=== PATIENT | female | born 1930 | race Caucasian/White ===

== ENCOUNTER 2018-07-17 10:37 | Emergency (ER) | payer OTHER, MEDICAID ==
[~2018-07-17] VITALS: Ht 162.6 cm; Wt 55.0 kg
[2018-07-17] MEDS ORDERED: ACETAMINOPHEN 650MG SUPP PR STA (11:03)
[2018-07-17] MEDS ORDERED: SODIUM CHLORIDE 0.9% 1000ML BAG (SEPSIS BOLUS) IV ONE (11:15)
[2018-07-17 11:25] LABS: BASOPHILS % 0.2 % (0.0-2.0); HEMATOCRIT. 40.9 % (36.0-48.0); HEMOGLOBIN. 13.5 g/dL (12.0-16.0); MEAN CORPUSCULAR HEMOGLOBIN 29.7 pg (28.0-32.0); MEAN CORPUSCULAR VOLUME 89.8 fL (81.0-99.0); MEAN PLATELET VOLUME 10.7 fl (7.4-10.4); NEUTROPHILS % 88.8 % (40.0-76.0); PLATELET 102 x1000/uL (130-400); RED BLOOD CELL COUNT 4.55 mill/uL (4.2-5.4); RED CELL DISTRIBUTION WIDTH 15.6 % (11.6-14.6)
[2018-07-17 11:31] LABS: PROTHROMBIN TIME 19.5 sec (9.1-11.1)
[2018-07-17 11:34] LABS: CHLORIDE 105 mEq/L (98-107)
[2018-07-17 12:05] LABS: CLARITY URINE CLOUDY (CLEAR); COLOR URINE YELLOW (YELLOW); KETONES URINE NEGATIVE (NEGATIVE); LEUKOCYTE ESTERASE URINE 3+ (NEGATIVE); NITRITE URINE POSITIVE (NEGATIVE); OCCULT BLOOD URINE 1+ (NEGATIVE); PH URINE 6.5 (4.5-8.0); PROTEIN URINE TRACE (NEGATIVE); UROBILINOGEN URINE 0.2 E.U./dL (0.2-1.0)
[2018-07-17] MEDS ORDERED: CEFTRIAXONE 1 G PREMIX 50 ML IV ONE (13:00)
[2018-07-17 16:20] VITALS: BP 133/56
== END 2018-07-17 16:41 | disposition short-term general hospital (02) ==
LOC: ER 10:37 → CANBEDREQ 17:33
DX: N39.0 Urinary tract infection, site not specified (principal); R50.9 Fever, unspecified; M41.84 Other forms of scoliosis, thoracic region; I50.9 Heart failure, unspecified; I48.91 Unspecified atrial fibrillation; Z98.84 Bariatric surgery status; Z86.73 Personal history of transient ischemic attack (TIA), and cerebral infarction without residual deficits
CPT/HCPCS: 36415; 71045; 80053; 81003; 83605; 83880; 84145; 84484; 85025; 85610; 87040; 87077; 87086; 87186; 93005; 96361; 96365; 99285; J0696; J7030

== ENCOUNTER 2020-02-01 15:34 | Emergency (ER) | payer OTHER, MEDICAID ==
[~2020-02-01] VITALS: Ht 167.6 cm; Wt 50.0 kg
[2020-02-01 16:10] LABS: BASOPHILS % 0.3 % (0.0-2.0); EOSINOPHILS % 0.1 % (0.0-5.0); HEMATOCRIT. 37.7 % (36.0-48.0); HEMOGLOBIN. 12.4 g/dL (12.0-16.0); LYMPHOCYTES % 14.4 % (20.0-50.0); MEAN CORPUSCULAR HEMOGLOBIN 28.8 pg (28.0-32.0); MEAN CORPUSCULAR VOLUME 87.9 fL (81.0-99.0); MEAN PLATELET VOLUME 10.7 fl (7.4-10.4); MONOCYTES % 8.6 % (2.0-8.0); NEUTROPHILS % 76.6 % (40.0-76.0); PLATELET 154 x1000/uL (130-400); RED BLOOD CELL COUNT 4.29 mill/uL (4.2-5.4); RED CELL DISTRIBUTION WIDTH 15.2 % (11.6-14.6)
[2020-02-01 16:11] LABS: CHLORIDE 103 mEq/L (98-107)
[2020-02-01 16:12] LABS: INR 1.6; PROTHROMBIN TIME 17.6 sec (9.6-11.0)
[2020-02-01 16:18] LABS: ETHANOL BLOOD < 10 mg/dL
[2020-02-01 16:20] LABS: LDL CHOLESTEROL 55 mg/dL (5-100)
[2020-02-01 18:49] LABS: *AMPHETAMINES SCREEN URINE NEGATIVE (NEGATIVE); *BARBITURATES SCREEN URINE NEGATIVE (NEGATIVE); *BENZODIAZEPINES SCREEN URINE NEGATIVE (NEGATIVE); *COCAINE SCREEN URINE NEGATIVE (NEGATIVE); CANNABINOID URINE SCREEN NEGATIVE (NEGATIVE); METHADONE URINE SCREEN NEGATIVE (NEGATIVE); OPIATES URINE SCREEN NEGATIVE (NEGATIVE)
[2020-02-01 18:50] LABS: PHENCYCLIDINE URINE SCREEN NEGATIVE (NEGATIVE)
[2020-02-01 18:51] LABS: CLARITY URINE CLEAR (CLEAR); KETONES URINE NEGATIVE (NEGATIVE); LEUKOCYTE ESTERASE URINE 3+ (NEGATIVE); NITRITE URINE NEGATIVE (NEGATIVE); OCCULT BLOOD URINE NEGATIVE (NEGATIVE); PH URINE 7.5 (4.5-8.0); PROTEIN URINE NEGATIVE (NEGATIVE); SPECIFIC GRAVITY URINE 1.035 (1.005-1.030); UROBILINOGEN URINE 0.2 E.U./dL (0.2-1.0)
[2020-02-01 19:07] LABS: COLOR URINE PALE YELLOW (YELLOW)
[2020-02-01] MEDS ORDERED: CEFTRIAXONE 1 G PREMIX 50 ML IV NR (19:30)
[2020-02-01] MEDS ORDERED: SODIUM CHLORIDE 0.9% 500 ML IV ONE (19:45)
[2020-02-01] MEDS ORDERED: ACETAMINOPHEN 650MG/20.3ML UDC PO ONE (19:45)
[2020-02-01 23:35] VITALS: BP 124/86
== END 2020-02-01 23:39 | disposition home or self-care (01) ==
LOC: ER 15:34 → CANBEDREQ 02-02 01:31
DX: N39.0 Urinary tract infection, site not specified (principal); R41.82 Altered mental status, unspecified; I50.9 Heart failure, unspecified; Z86.73 Personal history of transient ischemic attack (TIA), and cerebral infarction without residual deficits; Z98.890 Other specified postprocedural states
CPT/HCPCS: 36415; 70450; 70496; 70498; 71045; 73030; 73060; 73080; 80053; 80305; 80320; 81003; 82962; 83721; 84484; 85025; 85610; 87077; 87086; 87186; 93005; 96365; 99285; J0696; J7040; G0480

== ENCOUNTER 2021-04-07 15:23 | Emergency (ER) | payer OTHER, MEDICAID ==
[~2021-04-07] VITALS: Ht 165.1 cm; Wt 55.0 kg
[2021-04-07 16:29] LABS: BASOPHILS % 0.2 % (0.0-2.0); EOSINOPHILS % 0.2 % (0.0-5.0); HEMATOCRIT. 36.2 % (36.0-48.0); HEMOGLOBIN. 12.4 g/dL (12.0-16.0); MEAN PLATELET VOLUME 11.1 fl (7.4-10.4); MONOCYTES % 2.8 % (2.0-8.0); NEUTROPHILS % 83.8 % (40.0-76.0); PLATELET 131 x1000/uL (130-400); RED BLOOD CELL COUNT 4.12 mill/uL (4.2-5.4); RED CELL DISTRIBUTION WIDTH 15.5 % (11.6-14.6)
[2021-04-07 16:37] LABS: CHLORIDE 106 mEq/L (98-107)
[2021-04-07 16:40] LABS: INR 3.7; PROTHROMBIN TIME 36.2 sec (9.6-11.0)
[2021-04-07 16:46] LABS: CREATINE KINASE 60 IU/L (26-192)
[2021-04-07 18:02] LABS: CLARITY URINE CLEAR (CLEAR); COLOR URINE YELLOW (YELLOW); KETONES URINE NEGATIVE (NEGATIVE); LEUKOCYTE ESTERASE URINE TRACE (NEGATIVE); NITRITE URINE POSITIVE (NEGATIVE); OCCULT BLOOD URINE NEGATIVE (NEGATIVE); PH URINE 7.5 (4.5-8.0); PROTEIN URINE NEGATIVE (NEGATIVE); SPECIFIC GRAVITY URINE 1.007 (1.005-1.030); UROBILINOGEN URINE 0.2 E.U./dL (0.2-1.0)
[2021-04-07] MEDS ORDERED: CEFTRIAXONE 1 G PREMIX 50 ML IV ONE (18:30)
[2021-04-07 21:31] VITALS: BP 147/74
== END 2021-04-07 22:36 | disposition short-term general hospital (02) ==
LOC: ER 15:23
DX: N39.0 Urinary tract infection, site not specified (principal); G93.40 Encephalopathy, unspecified; I11.0 Hypertensive heart disease with heart failure; I50.9 Heart failure, unspecified; I48.91 Unspecified atrial fibrillation; Z86.73 Personal history of transient ischemic attack (TIA), and cerebral infarction without residual deficits; Z98.84 Bariatric surgery status; Z79.01 Long term (current) use of anticoagulants
CPT/HCPCS: 36415; 70450; 71045; 80053; 81003; 82550; 82962; 83605; 83880; 84145; 84484; 85025; 85610; 87040; 87077; 87086; 93005; 96365; 96366; 99285; J0696